=== PATIENT | male | born 1970 | race Caucasian/White ===

== ENCOUNTER 2020-05-17 11:09 | Outpatient (CLI) | payer OTHER ==
[2020-05-17 15:26] LABS: BASOPHILS # (AUTO) 0.1 10^3/uL (0.0-0.1); BASOPHILS % (AUTO) 1.5 %; EOSINOPHILS # (AUTO) 0.3 10^3/uL (0.0-0.7); EOSINOPHILS % (AUTO) 6.5 %; HGB - HEMOGLOBIN 16.1 g/dL (14.0-18.0); LYMPHOCYTES # (AUTO) 1.3 10^3/uL (1.5-3.5); LYMPHOCYTES % (AUTO) 33.1 %; MEAN CORPUSCULAR HEMOGLOBIN 31.8 pg (27.0-31.0); MEAN CORPUSCULAR HGB CONC 35.2 g/dL (32.0-36.0); MEAN CORPUSCULAR VOLUME 90.3 fL (80.0-94.0); MEAN PLATELET VOLUME 9.9 fL (7.4-11.4); MONOCYTES # (AUTO) 0.4 10^3/uL (0.0-1.0); NEUTROPHILS % (AUTO) 49.6 %; PLT - PLATELET COUNT 208 10^3/uL (130-450); RED BLOOD COUNT 5.07 10^6/uL (4.70-6.10); RED CELL DISTRIBUTION WIDTH 12.8 % (12.0-15.0)
[2020-05-17 15:37] LABS: ALBUMIN/GLOBULIN RATIO 1.7 (1.0-2.2); ALKALINE PHOSPHATASE 34 IU/L (42-121); ALT ALANINE AMINOTRANSFERASE 32 IU/L (10-60); AST ASPARTATE AMINOTRANSFERASE 24 IU/L (10-42); BILIRUBIN,TOTAL 1.2 mg/dL (0.2-1.0); BUN - BLOOD UREA NITROGEN 16 mg/dL (6-20); CALCIUM 9.7 mg/dL (8.5-10.3); CARBON DIOXIDE - CO2 25 mmol/L (21-32); CHLORIDE 102 mmol/L (101-111); CHOL/HDL RATIO 5.8 (<5.0); CHOLESTEROL 298 mg/dL; CREATININE 0.8 mg/dL (0.6-1.2); GLUCOSE 97 mg/dL (70-100); HDL CHOLESTEROL 51 mg/dL; LDL CHOLESTEROL,CALCULATED 224 mg/dL; LDL/HDL RATIO 4.4 (<3.6); SODIUM 136 mmol/L (135-145); TOTAL PROTEIN 7.9 g/dL (6.7-8.2); VLDL CHOLESTEROL 23 mg/dL
== END 2020-05-17 11:10 | disposition home or self-care (01) ==
LOC: LAB.S 11:09
PROVIDERS: ATTEND Physician Assistant
DX: Z00.00 Encounter for general adult medical examination without abnormal findings (principal); N40.0 Benign prostatic hyperplasia without lower urinary tract symptoms; R53.83 Other fatigue; Z79.899 Other long term (current) drug therapy
CPT/HCPCS: 36415; 80053; 80061; 83721; 84153; 84443; 85025

== ENCOUNTER 2020-09-27 07:07 | Day surgery (SDC) | payer OTHER ==
[2020-09-27] MEDS ORDERED: LACTATED RINGERS 1,000 ML IV ONE ×2 (07:27→08:49)
--- NOTE | 2020-09-27 08:03 | ANESTHESIA ---
Pre-Anesthesia VS, & Labs - Diagnosis screening - Procedure colonoscopy Vital Signs: Temp Pulse Resp BP Pulse Ox 36.8 C 58 L 16 142/89 H 99 09/27/20 07:22 09/27/20 07:22 09/27/20 07:22 09/27/20 07:22 09/27/20 07:22 Height: 6 ft Weight (kg): 98.9 kg Body Mass Index: 29.5 BMI Classification: Overweight Home Medications and Allergies Home Medications: Ambulatory Orders Rosuvastatin Calcium [Crestor] 20 mg PO DAILY 09/27/20 Rosuvastatin Calcium [Crestor] 20 mg PO DAILY 09/27/20 Anes History & Medical History - Anesthetic History Family history of Anesthesia Complications: Denies Family history of Malignant Hyperthermia: Denies - Medical History Cardiovascular: reports: High cholesterol Pulmonary: reports: None Gastrointestinal: reports: None Urinary: reports: None Musculoskeletal: reports: None Skin: reports: None Exam Dental: WNL Mouth Openin Fingerbreadth Neck Mobility: Normal Mallampati classification: I, II Thyromental Distance: 4-6 cm Respiratory: Lungs clear Cardiovascular: Regular rate Abdomen: Normal bowel sounds Extremities: No clubbing Neurological: Normal gait Mental/Cognitive Status: Alert/Oriented X3 Cognitive Status: Within normal limits Plan Anesthesia Type: Total IV Consent for Procedure(s) Verified and Reviewed: Yes Code Status: Attempt Resuscitation ASA classification: 2-Mild systemic disease Is this case an emergency?: No
[2020-09-27] MEDS ORDERED: LIDOCAINE-MPF 2% 5 ML VIAL ONE (08:27)
[2020-09-27] MEDS ORDERED: PROPOFOL 500 MG/50 ML 500 MG/50 ML VIAL ONE (08:27)
[2020-09-27 09:36] VITALS: BP 124/91
--- NOTE | 2020-09-27 10:50 | ANESTHESIA POST OP EVALUATION ---
Anesthesia Post Eval - Post Anesthesia Eval Vitals: Last Vital Signs Temp 36.2 C L 09/27/20 08:50 Pulse 63 09/27/20 09:17 Resp 14 09/27/20 09:17 BP 124/91 H 09/27/20 09:17 Pulse Ox 100 09/27/20 09:17 CV Function Including HR & BP: positive: Stable Pain Control: positive: Satisfactory Nausea & Vomiting: positive: Negative Mental Status: positive: Baseline Respiratory Status: Airway Patent Hydration Status: Satisfactory Anesthesia Complications: positive: None
== END 2020-09-27 07:08 | disposition home or self-care (01) ==
LOC: SDS 07:07
PROVIDERS: ATTEND Surgery
PROC: 0DBN8ZZ Excision of Sigmoid Colon, Via Natural or Artificial Opening Endoscopic (ICD-10-PCS; principal; 2020-09-27 08:15)
DX: Z12.11 Encounter for screening for malignant neoplasm of colon (principal); K63.5 Polyp of colon; K57.30 Diverticulosis of large intestine without perforation or abscess without bleeding; E78.5 Hyperlipidemia, unspecified; E66.3 Overweight; Z68.29 Body mass index [BMI] 29.0-29.9, adult
CPT/HCPCS: 45380; J7120

== ENCOUNTER 2021-03-04 16:27 | Outpatient (CLI) | payer OTHER ==
[2021-03-04 20:23] LABS: CHOLESTEROL 222 mg/dL; HDL CHOLESTEROL 55 mg/dL; LDL CHOLESTEROL,CALCULATED 141 mg/dL; LDL/HDL RATIO 2.6 (<3.6); TRIGLYCERIDES 132 mg/dL; VLDL CHOLESTEROL 26 mg/dL
== END 2021-03-04 16:28 | disposition home or self-care (01) ==
LOC: LAB.S 16:27
PROVIDERS: ATTEND Physician Assistant
DX: Z00.00 Encounter for general adult medical examination without abnormal findings (principal); E78.5 Hyperlipidemia, unspecified; Z79.899 Other long term (current) drug therapy; N40.0 Benign prostatic hyperplasia without lower urinary tract symptoms; R53.83 Other fatigue
CPT/HCPCS: 36415; 80061; 83721